=== PATIENT | female | born 2000 | race Two or more races ===

== ENCOUNTER 2021-03-24 22:11 | Emergency (ER) | payer MEDICAID ==
--- NOTE | 2021-03-24 23:16 | EDM.PDOC ---
ED HPI GENERAL MEDICAL PROBLEM - General Chief Complaint: Respiratory Problem Stated Complaint: CHEST PAIN, 14 WEEKS PREG, DIARRHEA Time Seen by Provider: 03/24/21 22:33 - History of Present Illness INITIAL COMMENTS - FREE TEXT/NARRATIVE: CHIEF COMPLAINT(S): Diarrhea HISTORY OF PRESENT ILLNESS: This is a 21-year-old man who is approximately 14 weeks who comes to the emergency department with a chief complaint of diarrhea. Patient states that her tested positive for COVID-19 today. She states that she has been experiencing a bifrontal headache not associated with any blurry vision, double vision, loss of vision, trouble walking speaking or swallowing. She describes the pain as 4-5 out of 10 and throbbing. She denies any photophobia or phonophobia. She denies any runny nose or congestion. She states that she has not had any exacerbating factors and there are no relieving factors. She has not yet tried anything. She states that in addition to this she has been experiencing diarrhea which is nonbloody but denies any nausea or vomiting. She denies any abdominal pain. She denies any vaginal bleeding, vaginal discharge, hematuria or dysuria. She states that she does have intermittent sharp little chest pains in the middle of her chest without any recent travel, recent surgery, prior history of DVT or PE. She states that they last a couple seconds and resolve on their own. She denies any other symptoms. REVIEW OF SYSTEMS: Constitutional: Denies fever, chills. Eyes: Denies eye pain Ears, Nose, Mouth, & Throat: Denies earache Cardiovascular: Positive for intermittent chest pain Respiratory: Denies shortness of breath Gastrointestinal: Positive for diarrhea. Denies nausea, vomiting, hematochezia, melena Genitourinary: Denies hematuria Skin:Denies a rash MSK: Denies joint pain Neurological: Positive for headache. Denies blurred vision, trouble walking, speaking or swallowing. Psychiatric: Denies depression PAST MEDICAL HISTORY: As per history of present illness and as reviewed below otherwise noncontributory. SURGICAL HISTORY: As per history of present illness and as reviewed below otherwise noncontributory. LMP: Approximately 14 weeks ago SOCIAL HISTORY: As per history of present illness and as reviewed below otherwise noncontributory. FAMILY HISTORY: As per history of present illness and as reviewed below otherwise noncontributory. EXAMINATION OF ORGAN SYSTEMS/BODY AREAS: Constitutional: Blood pressure was 132/72, heart rate 86, respiratory rate 18 with an oxygen saturation 97% on room air. Temperature 36.1 General: Well-appearing woman who is in no acute distress Psychiatric: Appropriate mood and affect. Eyes: No scleral icterus or conjunctival erythema ENMT: Moist mucous membranes. No pharyngeal erythema Cardiovascular: Regular, rate, and rhythm. No gallops, murmurs, or rubs. Bilateral upper extremity pulses symmetric and intact. No peripheral edema. No JVD. Respiratory: Lungs clear to auscultation bilaterally. No wheezes, rales, or rhonchi. Gastrointestinal: Soft, non-tender, non-distended. Normoactive bowel sounds Genitourinary: No suprapubic tenderness Musculoskeletal: Normal range of motion. Skin: No lesions or abrasions. Neurological: Alert, GCS 15 MEDICAL DECISION MAKING AND COURSE IN THE ED WITH INTERPRETATION/REVIEW OF DIAGNOSTIC STUDIES: This is a 21-year-old man with a 14-week gestation who comes to the emergency department with headache, diarrhea and intermittent short-lived chest pains who overall appears well with normal vital signs. Given the patient's is Covid positive I do believe the patient is Covid positive. Will obtain a swab given that the patient will likely want Regeneron given that her is getting it today. We did obtain a screening EKG was unremarkable. I did discuss symptomatic treatment and fluid hydration at home for the diarrhea. She was amenable to this plan. Laboratory: COVID-19 is positive. After lab I did discuss results with the patient. I did offer the patient monoclonal antibody infusion. I did fill out the paperwork and fax it. At this time she is uncertain if she wants it or not. She does meet criteria given and obesity. I did discuss strict return precautions with the patient. She was amenable discharge and had no further questions DISPOSITION: The patient was discharged home in stable condition. The patient will follow up with primary care physician after her 10-day quarantine CONDITION: Fair PROCEDURES: None FINAL IMPRESSION(S)/DIAGNOSES: 1. Acute COVID-19 2. Acute diarrhea Mendoza Callahan M.D. Bilateral Chest Pain Score (Numeric/FACES): 3 - Related Data Allergies Allergy/AdvReac Type Severity Reaction Status Date / Time No Known Allergies Allergy Verified 03/25/21 23:32 Home Meds: Home Meds cephALEXin [Keflex] 500 mg PO BID #5 cap 03/26/21 [Rx] ED ROS GENERAL - Review of Systems Review Of Systems: See Below ED EXAM, GENERAL - Physical Exam Exam: See Below Course - Vital Signs Last Recorded V/S: Last Vital Signs Temp 36.1 C 03/24/21 23:18 Pulse 72 03/25/21 00:57 Resp 16 03/25/21 00:57 BP 118/64 03/25/21 00:57 Pulse Ox 97 03/25/21 00:57 - Orders/Labs/Meds Labs: Laboratory Tests 03/24/21 Range/Units 23:10 SARS-CoV-2 RNA (BRIGID) POSITIVE H (NEGATIVE) Meds: Medications Discontinued Medications Generic Name Dose Route Start Last Admin Trade Name Freq PRN Reason Stop Dose Admin Acetaminophen 1,000 mg 03/24/21 23:40 03/24/21 23:48 Acetaminophen 500 Mg Tab PO 03/24/21 23:41 1,000 mg ONETIME ONE Administration Departure - Departure Time of Disposition: 00:18 Disposition: Home, Self-Care 01 Condition: Fair Clinical Impression: COVID-19 - Discharge Information *PRESCRIPTION DRUG MONITORING PROGRAM REVIEWED*: No *COPY OF PRESCRIPTION DRUG MONITORING REPORT IN PATIENT KASHIF: No Instructions: What You Should Know About COVID-19 to Protect Yourself and Others - CDC, Food Choices to Help Relieve Diarrhea, Adult, 10 Things You Can Do to Manage Your COVID-19 Symptoms at Home - [facility][NOTE 3] (12/09/2020), Symptoms of COVID- 19 - [facility][NOTE 3] (07/18/2020) Referrals: PCP,None [Primary Care Provider] - Forms: ED Department Discharge Additional Instructions: Your evaluated today on an emergent basis. At this time your Covid screening was positive. Given that you are you are considered high risk for Covid complications and can get the monoclonal antibody. We did fax over the information for monoclonal antibody if you are interested. You should take acetaminophen 500-1000 mg every 6 hours as needed for fever and muscle aches. Please drink plenty of fluids and get plenty of rest over the next several days. We would recommend that she get a pulse oximeter from the pharmacy to keep an eye on your oxygen level. If your oxygen level drops below 91%, you should return to the ED for evaluation. You should return to the ER sooner if you start having any symptoms of shortness of breath or any other new or concerning symptoms. 1. Your COVID-19 screening is positive. That means you do have the coronavirus and you are considered contagious. Your vital signs and oxygen saturation are well enough that you were able to monitor your symptoms at home. Continue to monitor for trouble breathing, new confusion or inability to arouse, bluish lips or face or any of the other symptoms we discussed -if this occurs please return to the emergency room. 2. Please self quarantine over the next 10 days. Inform any persons that you have been in contact with since you started becoming symptomatic that you have tested positive; they should be made aware and take the appropriate steps as needed. 3. May alternate Tylenol as needed for pain and fever management. 4. The [facility] will be calling you and following up with you. The [place] COVID 19 Hotline phone number , They are open Saturday - Saturday 7am - 7pm. Follow up with your primary care provider for re-evaluation and re-testing after the 10 day quarantine and discuss when you should be seen. The patient is informed of any results of their evaluation and diagnostic workup and all questions are answered. They are given discharge instructions and return precautions. The patient is stable for discharge. The patient states they understand and agree with the plan and that they will return if their symptoms get worse or if they have any new concerns. The following information is given to patients seen in the emergency department who are being discharged to home. This information is to outline your options for follow-up care. We provide all patients seen in our emergency department with a follow-up referral. The need for follow-up, as well as the timing and circumstances, are variable depending upon the specifics of your emergency department visit. If you don't have a primary care physician on staff, we will provide you with a referral. We always advise you to contact your personal physician following an emergency department visit to inform them of the circumstance of the visit and for follow-up with them and/or the need for any referrals to a consulting specialist. The emergency department will also refer you to a specialist when appropriate. This referral assures that you have the opportunity for follow-up care with a specialist. All of these measure are taken in an effort to provide you with optimal care, which includes your follow-up. Under all circumstances we always encourage you to contact your private physician who remains a resource for coordinating your care. When calling for follow-up care, please make the office aware that this follow-up is from your recent emergency room visit. If for any reason you are refused follow-up, please contact the [facility] Emergency Department at and asked to speak to the emergency department charge nurse.
--- NOTE | 2021-03-24 23:17 | PCM.EKG ---
#1 Interpretation EKG Date: 03/24/21 Time: 22:41 Rhythm: NSR Rate (Beats/Min): 87 [place]: Normal P-Wave: Present QRS: Normal ST-T: Normal QT: Normal Comparison: NA - No Prior EKG EKG Interpretation Comments: Sinus Rhythm
[2021-03-24] MEDS ORDERED: Acetaminophen 500 MG Tab PO ONE (23:40)
== END 2021-03-25 00:57 | disposition home or self-care (01) ==
LOC: MW.ED 22:11
DX: O98.512 Other viral diseases complicating pregnancy, second trimester (principal); U07.1 COVID-19; R19.7 Diarrhea, unspecified; Z3A.14 14 weeks gestation of pregnancy
CPT/HCPCS: 87635; 93005; 99284; A9270; U0002

== ENCOUNTER 2021-03-25 23:11 | Emergency (ER) | payer MEDICAID ==
[2021-03-26] MEDS ORDERED: Cephalexin 500 MG Cap PO ONE (01:17)
--- NOTE | 2021-03-26 01:20 | EDM.PDOC ---
ED HPI GENERAL MEDICAL PROBLEM - General Chief Complaint: SECURITY SITE SUPERVISOR Problem Stated Complaint: STOMACH PAIN, 14 WEEKS , COVID POS Time Seen by Provider: 03/26/21 00:02 - History of Present Illness INITIAL COMMENTS - FREE TEXT/NARRATIVE: CHIEF COMPLAINT(S): Abdominal pain HISTORY OF PRESENT ILLNESS: This is a 21-year-old woman who is approximately 14 weeks gestation with recent diagnosis of COVID-19 pneumonia and diarrhea who comes to the emergency department with a chief complaint of abdominal pain. The patient states that she started to experience abdominal pain in her lower pelvic region today. She describes it is intermittent and achy. She rates her pain as 9 out of 10. She denies any vaginal bleeding, vaginal discharge, dysuria or hematuria. She states that she has been evaluated by an boat worker and has had an intrauterine identified. She denies any fevers, chills, chest pain or shortness of breath. She states that she does have an intermittent cough. REVIEW OF SYSTEMS: Constitutional: Denies fever, chills. Eyes: Denies eye pain Ears, Nose, Mouth, & Throat: Denies earache Cardiovascular: Denies chest pain Respiratory: Positive for intermittent cough. Denies shortness of breath Gastrointestinal: Positive for diarrhea. Denies nausea, vomiting, hematochezia, hematemesis, bilious emesis Genitourinary: Positive for pelvic cramping. Denies hematuria, dysuria, vaginal bleeding, vaginal discharge Skin:Denies a rash MSK: Denies joint pain Neurological: Denies blurred vision Psychiatric: Denies depression PAST MEDICAL HISTORY: As per history of present illness and as reviewed below otherwise noncontributory. SURGICAL HISTORY: As per history of present illness and as reviewed below otherwise noncontributory. SOCIAL HISTORY: As per history of present illness and as reviewed below otherwise noncontributory. FAMILY HISTORY: As per history of present illness and as reviewed below otherwise noncontributory. EXAMINATION OF ORGAN SYSTEMS/BODY AREAS: Constitutional: Blood pressure is 133/77, heart rate 95, respiratory rate 17 with an oxygen saturation 98% on room air. Temperature 36.3 General: Well-appearing woman who is in no acute distress Psychiatric: Appropriate mood and affect. Eyes: No scleral icterus or conjunctival erythema ENMT: Moist mucous membranes. No pharyngeal erythema Cardiovascular: Regular, rate, and rhythm. No gallops, murmurs, or rubs. B ilateral upper extremity pulses symmetric and intact. No peripheral edema. No JVD. Respiratory: Lungs clear to auscultation bilaterally. No wheezes, rales, or rhonchi. Gastrointestinal: Soft, non-tender, non-distended. Normoactive bowel sounds Genitourinary: No suprapubic tenderness no CVA tenderness Musculoskeletal: Normal range of motion. Skin: No lesions or abrasions. Neurological: Alert, GCS 15 MEDICAL DECISION MAKING AND COURSE IN THE ED WITH INTERPRETATION/REVIEW OF DIAGNOSTIC STUDIES: This is a 21-year-old who is approximately 14 weeks gestation who is recently diagnosed with COVID-19 and diarrhea who comes to the emergency department with a acute pelvic cramping without any vaginal bleeding. Given the patient has already had an outpatient ultrasound identifying an intrau terine no formal ultrasound will be obtained. We will perform a bedside ultrasound to evaluate for heart rate and IUP. Obtain a urinalysis and hCG. I do believe the patient's pain is likely secondary from the diarrhea that she was evaluated for yesterday. DDx: Urinary tract infection, gastroenteritis, round ligament pain Bedside transabdominal OB ultrasound Bedside transabdominal OB ultrasound reveals a single live intrauterine gestation without any evidence of subchorionic hemorrhage or abnormality. There is no free fluid in the pelvis. heart rate was present. Laboratory: Urinalysis did not reveal any leukocyte esterase or nitrites but did have few bacteria. hCG is positive. Given the bacteria in the urine we will start the patient on Keflex here. I did discuss this with the patient. She is to complete a course of antibiotics at home. I did discuss strict return precautions with the patient. She was amenable discharge and had no further questions. DISPOSITION: The patient was discharged home in stable condition. The patient will follow up with boat worker after her scheduled 10-day isolation CONDITION: Fair PROCEDURES: Bedside transabdominal OB ultrasound FINAL IMPRESSION(S)/DIAGNOSES: 1. Acute abdominal pain likely secondary to diarrhea 2. Bacteriuria during Mendoza Callahan M.D. Bilateral Abdominal Pain Score (Numeric/FACES): 9 - Related Data Allergies Allergy/AdvReac Type Severity Reaction Status Date / Time No Known Allergies Allergy Verified 03/25/21 23:32 Home Meds: Home Meds cephALEXin [Keflex] 500 mg PO BID #5 cap 03/26/21 [Rx] Past Medical History - Past Health History Medical/Surgical History: Denies Medical/Surgical History - Infectious Disease History Infectious Disease History: Reports: None Social & Family History - Family History Family Medical History: No Pertinent Family History - Tobacco Use Tobacco Use Status *Q: Never Tobacco User - Caffeine Use Caffeine Use: Reports: None - Recreational Drug Use Recreational Drug Use: No ED ROS GENERAL - Review of Systems Review Of Systems: See Below ED EXAM, GENERAL - Physical Exam Exam: See Below Course - Vital Signs Last Recorded V/S: Last Vital Signs Temp 36.3 C 03/25/21 23:32 Pulse 91 03/26/21 01:33 Resp 17 03/26/21 01:33 BP 128/73 03/26/21 01:33 Pulse Ox 97 03/26/21 01:33 - Orders/Labs/Meds Labs: Laboratory Tests 03/26/21 03/26/21 Range/Units 00:05 00:05 Urine Color YELLOW Urine Appearance CLEAR Urine pH 6.0 (5.0-8.0) Ur Specific [place] >= 1.030 (1.001-1.035) Urine Protein NEGATIVE (NEGATIVE) mg/dL Urine Glucose (UA) NEGATIVE (NEGATIVE) mg/dL Urine Ketones NEGATIVE (NEGATIVE) mg/dL Urine Occult Blood TRACE-INTACT H (NEGATIVE) Urine Nitrite NEGATIVE (NEGATIVE) Urine Bilirubin NEGATIVE (NEGATIVE) Urine Urobilinogen 0.2 (<2.0) EU/dL Ur Leukocyte Esterase NEGATIVE (NEGATIVE) Urine RBC 0-2 (0-2/HPF) Urine WBC 0-1 (0-5/HPF) Ur Epithelial Cells FEW (NONE-FEW) Urine Bacteria FEW (NEGATIVE) Urine Mucus LIGHT (NONE-MOD) Urine HCG, Qual POSITIVE (NEGATIVE) Meds: Medications Discontinued Medications Generic Name Dose Route Start Last Admin Trade Name Freq PRN Reason Stop Dose Admin Cephalexin 500 mg 03/26/21 01:17 03/26/21 01:31 Cephalexin 500 Mg Cap PO 03/26/21 01:18 500 mg ONETIME ONE Administration Departure - Departure Time of Disposition: 01:19 Disposition: Home, Self-Care 01 Condition: Fair Clinical Impression: Asymptomatic bacteriuria during , Abdominal pain affecting - Discharge Information *PRESCRIPTION DRUG MONITORING PROGRAM REVIEWED*: No *COPY OF PRESCRIPTION DRUG MONITORING REPORT IN PATIENT KASHIF: No Prescriptions: cephALEXin [Keflex] 500 mg PO BID #5 cap Instructions: Abdominal Pain During Referrals: PCP,None [Primary Care Provider] - Forms: ED Department Discharge Additional Instructions: You were evaluated today on an emergent basis. At this time bedside ultrasound did reveal a single live intrauterine gestation. heart tones were normal. Given the abdominal pain I do believe this is likely secondary to the diarrhea you have been experiencing secondary to COVID-19. However your urine did show some bacteria so we started you on an antibiotic. I recommend you take it twice a day until antibiotics are gone. If any worsening pain, vaginal bleeding I would like you to return to the emergency department. Otherwise follow-up with your boat worker at your scheduled appointment. [facility] [address] [place] [id number] [facility] [address] [place] [id number] The patient is informed of any results of their evaluation and diagnostic workup and all questions are answered. They are given discharge instructions and return precautions. The patient is stable for discharge. The patient states they understand and agree with the plan and that they will return if their symptoms get worse or if they have any new concerns. The following information is given to patients seen in the emergency department who are being discharged to home. This information is to outline your options for follow-up care. We provide all patients seen in our emergency department with a follow-up referral. The need for follow-up, as well as the timing and circumstances, are variable depending upon the specifics of your emergency department visit. If you don't have a primary care physician on staff, we will provide you with a referral. We always advise you to contact your personal physician following an emergency department visit to inform them of the circumstance of the visit and for follow-up with them and/or the need for any referrals to a consulting specialist. The emergency department will also refer you to a specialist when appropriate. This referral assures that you have the opportunity for follow-up care with a specialist. All of these measure are taken in an effort to provide you with optimal care, which includes your follow-up. Under all circumstances we always encourage you to contact your private physician who remains a resource for coordinating your care. When calling for follow-up care, please make the office aware that this follow-up is from your recent emergency room visit. If for any reason you are refused follow-up, please contact the [facility] Emergency Department at and asked to speak to the emergency department charge nurse. Sepsis Event Note (ED) - Evaluation Sepsis Screening Result: No Definite Risk
== END 2021-03-26 01:34 | disposition home or self-care (01) ==
LOC: MW.ED 23:11
DX: O99.891 Other specified diseases and conditions complicating pregnancy (principal); R10.9 Unspecified abdominal pain; R82.71 Bacteriuria; Z3A.14 14 weeks gestation of pregnancy
CPT/HCPCS: 81001; 81025; 87086; 99284; A9270

== ENCOUNTER 2021-08-23 11:19 | Inpatient (IN) | payer BC ==
[2021-08-23] MEDS ORDERED: Magnesium Sulfate/Water 4 GM in Premix Bag 1 BAG IV ONE (12:07)
[2021-08-23] MEDS ORDERED: Butorphanol 1 MG/ML SDV IVPUSH PRN (12:07)
[2021-08-23] MEDS ORDERED: Methylergonovine 0.2 MG/1 ML Amp IM PRN (12:07)
[2021-08-23] MEDS ORDERED: Water For Irrigation,Sterile 1,000 ML Container IRR PRN (12:07)
[2021-08-23] MEDS ORDERED: Carboprost Tromethamine 250 MCG/1 ML Amp IM PRN (12:07)
[2021-08-23] MEDS ORDERED: Sodium Chloride 0.9% 2.5 ML Syringe FLUSH PRN (12:07)
[2021-08-23] MEDS ORDERED: Lidocaine 1% 50 ML MDV INJECT PRN (12:07)
[2021-08-23] MEDS ORDERED: Calcium Gluconate 10% 1 GM/10 ML SDV IV PRN (12:07)
[2021-08-23] MEDS ORDERED: Sodium Chloride 0.9% 10 ML Syringe FLUSH PRN (12:07)
[2021-08-23] MEDS ORDERED: Sodium Chloride 0.9% 20 ML SDV IV PRN (12:07)
[2021-08-23] MEDS ORDERED: Ampicillin 2 GM in Sodium Chloride 0.9% 100 ML IV ONE (12:07)
[2021-08-23] MEDS ORDERED: Misoprostol 200 MCG Tab PO PRN (12:07)
[2021-08-23] MEDS ORDERED: Tranexamic Acid 1,000 MG in Sodium Chloride 0.9% 100 ML IV PRN (12:07)
[2021-08-23 12:15] LABS: BLOOD UREA NITROGEN,BUN 6 mg/dL (7.0-18.0)
[2021-08-23] MEDS ORDERED: Oxytocin/0.9 % Sodium Chloride 30 UNIT/500 ML BAG IV SCH ×2 (12:15→12:30)
[2021-08-23] MEDS ORDERED: Lactated Ringers 1,000 ML IV SCH (12:15)
[2021-08-23] MEDS ORDERED: Labetalol 100 MG/20 ML MDV IVPUSH PRN (12:18)
[2021-08-23] MEDS ORDERED: Terbutaline 1 MG/ML SDV SUBCUT PRN (12:18)
[2021-08-23] MEDS ORDERED: Insulin Regular, Human 100 Units/ML 10 ML Vial IVPUSH ONE (12:28)
[2021-08-23] MEDS ORDERED: Dextrose 5%-Lactated Ringers 1,000 ML IV SCH (12:30)
[2021-08-23] MEDS ORDERED: Sodium Chloride 0.9% 1,000 ML IV SCH (12:45)
[2021-08-23] MEDS ORDERED: Insulin Regular in 0.9 % NACL 100 ML IV SCH (13:00)
[2021-08-23] MEDS: Magnesium Sulfate/Water 20 GM/500 ML BAG IV SCH ×2 (13:07→22:59)
[2021-08-23] MEDS: Misoprostol 25 MCG (1/4 of 100 MCG) Tab VAG PRN ×2 (13:35→17:40)
[2021-08-23] MEDS: Ampicillin 1 GM in Sodium Chloride 0.9% 50 ML IV SCH ×2 (16:51→21:08)
[2021-08-23] MEDS ORDERED: Ropivacaine 100 ML ONE (22:32)
[2021-08-23] MEDS ORDERED: fentaNYL 100 MCG/2 ML SDV ONE (22:32)
[2021-08-24] MEDS: Ampicillin 1 GM in Sodium Chloride 0.9% 50 ML IV SCH ×2 (01:11→04:56)
[2021-08-24] MEDS ORDERED: fentaNYL 100 MCG/2 ML SDV ONE (08:58)
[2021-08-24] MEDS ORDERED: Bupivacaine 0.5% 30 ML SDV ONE (08:59)
[2021-08-24] MEDS ORDERED: Ropivacaine 100 ML ONE (08:59)
[2021-08-24] MEDS ORDERED: Ampicillin 1 GM Vial ONE (09:16)
[2021-08-24] MEDS: Magnesium Sulfate/Water 20 GM/500 ML BAG IV SCH (10:06)
[2021-08-24] MEDS ORDERED: Witch Hazel Medicated Pads 40/Jar TOP PRN (15:08)
[2021-08-24] MEDS ORDERED: Acetaminophen 500 MG Tab PO PRN (15:08)
[2021-08-24] MEDS ORDERED: Ibuprofen 400 MG Tab PO PRN (15:08)
[2021-08-24] MEDS ORDERED: Benzocaine/Menthol 20%-0.5% Spray 78 GM Cannister TOP PRN (15:08)
[2021-08-24] MEDS ORDERED: Bisacodyl 10 MG Supp RECTAL PRN (15:08)
[2021-08-24] MEDS ORDERED: Lanolin 100% Cream 7 GM Tube TOP PRN (15:08)
[2021-08-24] MEDS ORDERED: Docusate Sodium 100 MG Cap PO PRN (15:08)
[2021-08-24] MEDS: Ibuprofen 800 MG Tab PO PRN (21:18)
[2021-08-25] MEDS: Acetaminophen 500 MG Tab PO PRN ×2 (01:10→18:05)
[2021-08-25] MEDS: Magnesium Sulfate/Water 20 GM/500 ML BAG IV SCH (05:09)
[2021-08-25] MEDS: oxyCODONE 5 MG Tab PO PRN ×3 (05:15→12:41)
[2021-08-25 06:52] LABS: BLOOD UREA NITROGEN,BUN 14 mg/dL (7.0-18.0); CHLORIDE,CL 107 mmol/L (98-107); GLUCOSE RANDOM 98 mg/dL (74-106); POTASSIUM,K 4.4 mmol/L (3.5-5.1); SODIUM,NA 138 mmol/L (136-145)
[2021-08-25] MEDS: Ibuprofen 800 MG Tab PO PRN (18:06)
[2021-08-26] MEDS: Ibuprofen 800 MG Tab PO PRN ×2 (09:42→20:41)
[2021-08-26] MEDS ORDERED: Labetalol 100 MG Tab PO SCH (13:29)
[2021-08-26] MEDS: Acetaminophen 500 MG Tab PO PRN (13:52)
[2021-08-26] MEDS: Labetalol 100 MG Tab PO SCH (20:46)
[2021-08-27] MEDS: Ibuprofen 800 MG Tab PO PRN (09:05)
[2021-08-27] MEDS: Labetalol 100 MG Tab PO SCH (09:06)
== END 2021-08-27 14:11 | disposition home or self-care (01) | DRG 560 ==
LOC: MW.OBCHECK 11:19 → MW.OB 11:20 → MW.OBCHECK 11:23 → MW.OB 11:23 → OBSVTOIN 08-24 15:08 → MW.OB 08-24 18:40
PROVIDERS: ADMIT Obstetrics & Gynecology; ATTEND Obstetrics & Gynecology
PROC: 10E0XZZ Delivery of Products of Conception, External Approach (ICD-10-PCS; principal; 2021-08-24)
PROC: 10907ZC Drainage of Amniotic Fluid, Therapeutic from Products of Conception, Via Natural or Artificial Opening (ICD-10-PCS; 2021-08-24)
PROC: 3E033VJ Introduction of Other Hormone into Peripheral Vein, Percutaneous Approach (ICD-10-PCS; 2021-08-24)
PROC: 10H07YZ Insertion of Other Device into Products of Conception, Via Natural or Artificial Opening (ICD-10-PCS; 2021-08-24)
PROC: 3E0R3BZ Introduction of Anesthetic Agent into Spinal Canal, Percutaneous Approach (ICD-10-PCS; 2021-08-24)
PROC: 00HU33Z Insertion of Infusion Device into Spinal Canal, Percutaneous Approach (ICD-10-PCS; 2021-08-24)
DX: O14.14 Severe pre-eclampsia complicating childbirth (principal); Z37.0 Single live birth; O24.424 Gestational diabetes mellitus in childbirth, insulin controlled; O60.14X0 Preterm labor third trimester with preterm delivery third trimester, not applicable or unspecified; Z3A.36 36 weeks gestation of pregnancy
CPT/HCPCS: 01967; 36415; 51702; 59025; 59409; 80053; 82565; 82570; 82803; 82947; 83615; 83735; 84156; 84450; 84460; 84520; 84550; 85025; 85027; 86592; 86850; 86900; 86901; A9270-GY; J0290; J2590; J2795; J3010; J3475; J3490; J7030; J7120; U0002